=== PATIENT | male | born 2000 | race Caucasian/White ===

== ENCOUNTER 2024-01-12 11:49 | Emergency (ER) | payer OTHER ==
[2024-01-12 12:05] VITALS: BP 141/77; PULSE 96; RESP 20; TEMP 99.1; BMI 24.3
== END 2024-01-12 12:30 | disposition home or self-care (01) ==
LOC: JERFT 11:49
DX: H57.89 Other specified disorders of eye and adnexa (principal); H10.9 Unspecified conjunctivitis
CPT/HCPCS: 99283-25